=== PATIENT | female | born 2005 | race Two or more races ===

== ENCOUNTER 2025-01-12 21:40 | Emergency (ER) | payer OTHER ==
[~2025-01-12] VITALS: Ht 154.9 cm; Wt 78.9 kg
[2025-01-12] MEDS ORDERED: KETOROLAC TROMETHAMINE 10 MG TABLET PO STA (23:53)
[2025-01-13] MEDS ORDERED: KETOROLAC TROMETHAMINE 10 MG TABLET PO ONE (00:31)
[2025-01-13] MEDS ORDERED: KETO10TA2 PO (01:14)
== END 2025-01-13 01:19 ==
LOC: ER 21:40
DX: S80.02XA Contusion of left knee, initial encounter (principal); W18.39XA Other fall on same level, initial encounter; Y93.89 Activity, other specified; Y92.018 Other place in single-family (private) house as the place of occurrence of the external cause; Y99.9 Unspecified external cause status